=== PATIENT | male | born 1965 | race Caucasian/White ===

== ENCOUNTER 2024-04-03 09:27 | Day surgery (SDC) | payer OTHER ==
[~2024-04-03 09:27] MED LIST: Dexamethasone 4 MG/ML 5 ML MDV ONE; EPINEPHrine 1 MG/ML SDV ONE; Ketorolac 30 MG/ML SDV ONE; Lactated Ringers 1,000 ML IV SCH; Lidocaine 1% 4 ML ONE; Midazolam 1 MG/ML 2 ML SDV ONE; Ondansetron 4 MG/2 ML SDV ONE; Propofol 200 MG/20 ML SDV ONE; Rocuronium 50 MG/5 ML Vial ONE; Sodium Chloride 0.9% 10 ML Syringe FLUSH PRN; Sodium Chloride 0.9% 10 ML Syringe FLUSH SCH; ceFAZolin 2 GM Vial ONE; dexmedeTOMIDine HCl 200 MCG/2 ML SDV ONE; fentaNYL 250 MCG/5 ML SDV ONE
[2024-04-03] MEDS ORDERED: Lactated Ringers 1,000 ML ONE (09:38)
[2024-04-03] MEDS ORDERED: Rocuronium 50 MG/5 ML Vial ONE (09:49)
[2024-04-03] MEDS ORDERED: Sugammadex Sodium 200 MG/2 ML VIAL IV ONE (10:09)
[2024-04-03] MEDS ORDERED: diphenhydrAMINE 50 MG/ML SDV ONE (10:25)
[2024-04-03] MEDS: Bupivacaine 0.5% 30 ML SDV ONE (10:33)
[2024-04-03] MEDS ORDERED: Ondansetron 4 MG/2 ML SDV IVPUSH PRN (10:54)
[2024-04-03] MEDS ORDERED: fentaNYL 100 MCG/2 ML SDV IVPUSH PRN (10:54)
[2024-04-03] MEDS ORDERED: HYDROmorphone 0.5 MG/0.5 ML Syringe IVPUSH PRN (10:54)
[2024-04-03] MEDS ORDERED: oxyCODONE 5 MG Tab PO PRN (12:42)
== END 2024-04-03 14:20 | disposition home or self-care (01) ==
LOC: JD.SDS 09:27
PROVIDERS: ATTEND Surgery
DX: K40.20 Bilateral inguinal hernia, without obstruction or gangrene, not specified as recurrent (principal); I10 Essential (primary) hypertension; Z79.899 Other long term (current) drug therapy
CPT/HCPCS: 49650; C1781; J0171; J0665; J0690; J1100; J1200; J1885; J2250; J2405; J2704; J3010; J3490; J7120

== ENCOUNTER 2024-05-01 09:37 | Day surgery (SDC) | payer OTHER ==
[~2024-05-01 09:37] MED LIST changes: -Dexamethasone 4 MG/ML 5 ML MDV ONE; -EPINEPHrine 1 MG/ML SDV ONE; -Ketorolac 30 MG/ML SDV ONE; -Lactated Ringers 1,000 ML IV SCH; -Lidocaine 1% 4 ML ONE; -Midazolam 1 MG/ML 2 ML SDV ONE; -Ondansetron 4 MG/2 ML SDV ONE; -Propofol 200 MG/20 ML SDV ONE; -Rocuronium 50 MG/5 ML Vial ONE; -ceFAZolin 2 GM Vial ONE; -dexmedeTOMIDine HCl 200 MCG/2 ML SDV ONE; -fentaNYL 250 MCG/5 ML SDV ONE
[2024-05-01] MEDS: Lactated Ringers 1,000 ML IV SCH (10:40)
[2024-05-01] MEDS ORDERED: EPINEPHrine 1 MG/ML SDV ONE (10:58)
[2024-05-01] MEDS ORDERED: Bupivacaine 0.5% 30 ML SDV ONE (10:58)
[2024-05-01] MEDS ORDERED: Propofol 200 MG/20 ML SDV ONE ×2 (11:23→12:35)
[2024-05-01] MEDS ORDERED: Ondansetron 4 MG/2 ML SDV ONE (11:39)
[2024-05-01] MEDS ORDERED: ceFAZolin 2 GM Vial ONE (11:39)
[2024-05-01] MEDS ORDERED: Midazolam 1 MG/ML 2 ML SDV ONE (11:39)
[2024-05-01] MEDS ORDERED: Lidocaine 1% 4 ML ONE (11:39)
[2024-05-01] MEDS ORDERED: Dexamethasone 4 MG/ML 5 ML MDV ONE (11:39)
[2024-05-01] MEDS ORDERED: Ketorolac 30 MG/ML SDV ONE (11:39)
[2024-05-01] MEDS ORDERED: fentaNYL 100 MCG/2 ML SDV ONE (11:39)
[2024-05-01] MEDS ORDERED: dexmedeTOMIDine HCl 200 MCG/2 ML SDV ONE (11:41)
[2024-05-01] MEDS ORDERED: Ondansetron 4 MG/2 ML SDV IVPUSH PRN (12:52)
[2024-05-01] MEDS ORDERED: HYDROmorphone 0.5 MG/0.5 ML Syringe IVPUSH PRN (12:52)
[2024-05-01] MEDS ORDERED: fentaNYL 100 MCG/2 ML SDV IVPUSH PRN (12:52)
[2024-05-01] MEDS ORDERED: ePHEDrine 50 MG/ML SDV ONE (12:54)
== END 2024-05-01 15:40 | disposition home or self-care (01) ==
LOC: JD.SDS 09:37
PROVIDERS: ATTEND Surgery
DX: K40.90 Unilateral inguinal hernia, without obstruction or gangrene, not specified as recurrent (principal); I10 Essential (primary) hypertension; Z91.09 Other allergy status, other than to drugs and biological substances; Z79.899 Other long term (current) drug therapy
CPT/HCPCS: 49505; C1781; J0171; J0665; J0690; J1100; J1885; J2250; J2405; J2704; J3010; J7120; J3490